=== PATIENT | male | born 1945 | race Caucasian/White ===

== ENCOUNTER 2017-05-29 19:59 | Emergency (ER) | payer MEDICARE, BC ==
--- NOTE | 2017-05-29 21:11 | EDM.PDOC ---
ED HPI GENERAL MEDICAL PROBLEM - General Chief Complaint: Genitourinary Problem Stated Complaint: CATH BLOCKAGE Time Seen by Provider: 05/29/17 20:30 Source of Information: Reports: Patient History Limitations: Reports: No Limitations - History of Present Illness INITIAL COMMENTS - FREE TEXT/NARRATIVE: c/o urinary obstruction pt with TURP 20y ago, had a repeat TURP 3d abo at [facility] with Dr Mcqueen, told he had a flap from scar tissue that had been obstructing the uretheral that was removed pt removed yeh this AM as instructed, he had inc'd abd pain by this PM and a yeh was placed with return of 999 cc clear urine UA neg pain relieved no f/c/d or other sxs retired teacher, sports administrator and insurance professional Lower Abdomen Pain Score (Numeric/FACES): 8 - Related Data Allergies Allergy/AdvReac Type Severity Reaction Status Date / Time No Known Allergies Allergy Verified 05/29/17 20:23 Home Meds: Home Meds Hydrocodone/Acetaminophen [Hydrocodon-Acetaminophen 5-325] 1 mg PO ASDIRECTED PRN 05/29/17 [History] Tamsulosin HCl [Flomax] 0.4 mg PO 05/29/17 [History] Past Medical History HEENT History: Reports: Impaired Vision Other HEENT History: wears glasses Genitourinary History: Reports: Prostate Disorder - Infectious Disease History Infectious Disease History: Reports: Chicken Pox, Measles, Mumps, Shingles - Past Surgical History Male Surgical History: Reports: TURP-Transurethral Resection of Prostate Social & Family History - Family History : Reports: Other (See Below) Other Family History: prostate - Tobacco Use Smoking Status *Q: Never Smoker - Caffeine Use Caffeine Use: Reports: Coffee - Recreational Drug Use Recreational Drug Use: No ED ROS GENERAL - Review of Systems Review Of Systems: See Below Constitutional: Reports: No Symptoms HEENT: Reports: No Symptoms Respiratory: Reports: No Symptoms Cardiovascular: Reports: No Symptoms Endocrine: Reports: No Symptoms GI/Abdominal: Reports: Abdominal Pain. Denies: Nausea, Vomiting : Reports: Urinary Retention Musculoskeletal: Reports: No Symptoms Skin: Reports: No Symptoms Neurological: Reports: No Symptoms Psychiatric: Reports: No Symptoms Hematologic/Lymphatic: Reports: No Symptoms Immunologic: Reports: No Symptoms ED EXAM, RENAL/ - Physical Exam Exam: See Below Exam Limited By: No Limitations General Appearance: Alert, WD/WN, No Apparent Distress, Other (nontoxic, pleasant, conversant) GI/Abdominal: Soft, Non-Tender, No Organomegaly, No Distention, No Mass, Other ( after yeh placed abd was soft and NT, no CVAT) Extremities: Normal Inspection, No Pedal Edema Neurological: Alert, Oriented, CN II-XII Intact, Normal Cognition, No Motor/ Sensory Deficits Psychiatric: Normal Affect, Normal Mood Skin Exam: Warm, Dry, Intact, Normal Color, No Rash Lymphatic: No Adenopathy Course - Vital Signs Last Recorded V/S: Last Vital Signs Temp 36.0 C 05/29/17 20:25 Pulse 117 H 05/29/17 20:25 Resp 18 05/29/17 20:25 BP 139/84 05/29/17 20:25 Pulse Ox 100 05/29/17 20:25 - Orders/Labs/Meds Orders: Active Orders 24 hr Category Date Time Status Yeh Catheter Insertion [Insert Urinary Catheter] [OM. Care 05/29/17 21:00 Ordered PC] Q24H Urinary Catheter Assessment [RC] QSHIFT Care 05/29/17 20:47 Active Labs: Laboratory Tests 05/29/17 Range/Units 20:33 Urine Color Yellow (YELLOW) Urine Appearance Clear (CLEAR) Urine pH 6.0 (5.0-6.5) Ur Specific [place] 1.015 (1.010-1.025) Urine Protein Negative (NEGATIVE) mg/dL Urine Glucose (UA) Normal (NEGATIVE) mg/dL Urine Ketones Negative (NEGATIVE) mg/dL Urine Occult Blood Large H (NEGATIVE) Urine Nitrite Negative (NEGATIVE) Urine Bilirubin Negative (NEGATIVE) Urine Urobilinogen Normal (NEGATIVE) mg/dL Ur Leukocyte Esterase Negative (NEGATIVE) Urine RBC 20-30 H (0) Urine WBC 0-5 (0) Ur Squamous Epith Cells Few H (NS,R,O) Urine Bacteria Few H (NS) Departure - Departure Time of Disposition: 21:09 Disposition: Home, Self-Care 01 Condition: Good Clinical Impression: Urinary obstruction - Discharge Information Instructions: Yeh Catheter Care, Adult, Acute Urinary Retention, Male Referrals: PCP,None [Primary Care Provider] - Additional Instructions: Empty the yeh catheter bag several times a day as needed. Continue ibuprofen or acetaminophen as needed for discomfort. Call your urologist in 3 days on Thursday morning for additional instructions on how long to leave in the yeh. Return to ED if you are feeling worse. Call your Physician or Return to Emergency Department if: * Your condition worsens in any way. * You develop fever greater than 100.4. * You have vomitting that does not stop with medications. * You have pain that is not controlled with medications. - My Orders Last 24 Hours: My Active Orders 05/29/17 20:47 Urinary Catheter Assessment [RC] QSHIFT 05/29/17 21:00 Yeh Catheter Insertion [Insert Urinary Catheter] [OM.PC] Q24H - Assessment/Plan Last 24 Hours: My Active Orders 05/29/17 20:47 Urinary Catheter Assessment [RC] QSHIFT 05/29/17 21:00 Yeh Catheter Insertion [Insert Urinary Catheter] [OM.PC] Q24H
== END 2017-05-29 21:14 | disposition home or self-care (01) ==
LOC: FB.ED 19:59
DX: N13.9 Obstructive and reflux uropathy, unspecified (principal)
CPT/HCPCS: 51702; 51798; 81001; 99283